=== PATIENT | female | born 1975 | race Caucasian/White ===

== ENCOUNTER → 2024-03-05 15:25 | Outpatient (BNVA) | payer OTHER, SELFPAY | PROVIDERS: Family Provider Nurse Practitioner Family; Visit Provider Obstetrics & Gynecology | DX: Z01.419 Encounter for gynecological examination (general) (routine) without abnormal findings (principal) | CPT/HCPCS: 80053; 84443; 85025; 87624 ==

== ENCOUNTER → 2024-03-26 08:29 | Outpatient (BNVA) | payer OTHER, SELFPAY | PROVIDERS: Family Provider Nurse Practitioner Family; Visit Provider Obstetrics & Gynecology | DX: N92.0 Excessive and frequent menstruation with regular cycle (principal); R93.89 Abnormal findings on diagnostic imaging of other specified body structures | CPT/HCPCS: 76830 ==

== ENCOUNTER 2024-03-29 08:55 | Day surgery (SDC) | payer OTHER, SELFPAY ==
[2024-03-29] VITALS (10 sets, daily range): BP systolic 109–138; BP diastolic 76–87; PULSE 53–83; RESP 11–18; TEMP 36.2–36.3; O2SAT 97–100
--- NOTE | 2024-03-29 02:15 | P.HP_ITS ---
Same Day Surgery H&P Indication for Procedure/HPI DATE OF PROCEDURE: March 29, 2024 CHIEF COMPLAINT/INDICATIONFOR SURGICAL PROCEDURE: abnormal uterine bleeding PREOP DIAGNOSIS: abnormal uterine bleeding PLANNED PROCEDURE: Operation Date: 03/29/24 10:45 Proposed Procedures p Hysteroscopy Hysteroscopy w/ Endometrial Sampling 76290, 43768, N93.9(Not Olegario licable) - Raul Fonseca MD s Poylpectomy(Not Applicable) - Raul Fonseca MD s Placement of Intrauterine Device(Not Applicable) - Raul Fonseca MD 48 y.o. with heavy, prolonged periods Medications/Allergies* Home Medications Medication Instructions Recorded Confirmed Type ferrous sulfate 325 mg (65 mg 325 mg PO DAILY 03/05/24 03/28/24 History iron) tablet Allergies/Adverse Reactions Allergy/AdvReac Type Severity Reaction Status Date / Time No Known Allergies Allergy Unverified 03/05/24 14:27 Pertinent History/Comorbid Conditions* Family History (Updated 03/05/24 @ 14:28 by Gertrudis Nazario LPN) Diabetes Grandmother Heart disease Mother Hypercholesteremia Mother Hypertension Mother Thyroid disease Mother Denies family history of Colon cancer Ovarian cancer Prostate cancer Breast cancer Uterine cancer Stroke Pertinent Exam Findings alert, oriented x 3, clear to auscultation bilaterally and regular rate & rhythm Recommendations Surgery/Procedure today Coding Level of Care Code Acute Code for Chg Fwd Time Spent (min) 30
[2024-03-29] MEDS: sodium chloride 0.9% 1,000 ML 30 ML IV (09:22)
--- NOTE | 2024-03-29 10:28 | W.PM.OPSUD ---
Surgery/Procedure H&P Update DATE OF PROCEDURE: March 29, 2024 DATE H&P PERFORMED: 03/29/24 H&P UPDATE INFORMATION: I have reviewed H&P completed within last 30 days, I have examined patient prior to procedure and No changes to prior documentation PREOP DIAGNOSIS: abnormal uterine bleeding PLANNED PROCEDURE: Operation Date: 03/29/24 10:45 Proposed Procedures p Hysteroscopy Hysteroscopy w/ Endometrial Sampling 11582, 40662, N93.9(Not Applicable) - Raul Fonseca MD s Poylpectomy(Not Applicable) - Raul Fonseca MD s Placement of Intrauterine Device(Not Applicable) - Raul Fonseca MD
--- NOTE | 2024-03-29 10:39 | ANES.PREANE2 ---
Pre-Anesthetic Assessment Height/Weight: Height 1.65 m Weight 76.204 kg Temp Pulse Resp BP Pulse Ox O2 Del Method 97.3 F L 53 L 18 131/85 100 Room Air 03/29/24 09:23 03/29/24 09:23 03/29/24 09:23 03/29/24 09:23 03/29/24 09:23 03/29/24 09:23 Preop Diagnosis: abnormal uterine bleeding Operation Date: 03/29/24 10:45 Proposed Procedures p Hysteroscopy Hysteroscopy w/ Endometrial Sampling 21839, 62167, N93.9(Not Applicable) - Raul Fonseca MD s Poylpectomy(Not Applicable) - Raul Fonseca MD s Placement of Intrauterine Device(Not Applicable) - Raul Fonseca MD Familial anesthetic complications: None Was Beta Magnolia taken within 24 hours: N/A Was Clonidine taken within 24 hours: N/A Last intake: Intake Last Liquid Date 03/28/24 Last Liquid Time 23:00 Last Solid Date 03/28/24 Last Solid Time 23:00 Social No alcohol and No tobacco Exam alert, oriented x 3, clear to auscultation bilaterally and regular rate & rhythm Airway Mallampati: Class I Dentition: full Anesthetic Plan ASA status: 1 Anesthesia: General Risk of > 500 ml blood loss (7ml/kg in children): No Medications/Allergies Home Medications Medication Instructions Recorded Confirmed Last Taken Type ferrous sulfate 325 mg (65 mg 325 mg PO DAILY 03/05/24 03/28/24 03/28/24 History iron) tablet Allergies Allergy/AdvReac Type Severity Reaction Status Date / Time No Known Allergies Allergy Unverified 03/05/24 14:27 Current Medications Generic Name Dose Route Start Last Admin Trade Name Freq PRN Reason Stop Dose Admin Sodium Chloride 1,000 mls @ 30 mls/hr 03/29/24 09:15 03/29/24 09:22 Sodium Chloride 0.9% IV 03/30/24 09:14 30 mls/hr .Q24H LEAH Administration PFSH Anesthesia Family History Mother Heart disease Hypertension Hypercholesteremia Thyroid disease Grandmother Diabetes Denies family history of Colon cancer Ovarian cancer Prostate cancer Breast cancer Uterine cancer Stroke Female Reproductive History Date of last menstrual period: 01/17/24 Data Anesthesia Cardiac Studies: No Data to Display
--- NOTE | 2024-03-29 11:56 | SUR.OPER ---
mirena iud placed by Dr. Fonseca. lot: [id number] exp: 06/01/26
--- NOTE | 2024-03-29 12:25 | PM.OP ---
Operative Report Date of procedure: March 29, 2024 Pre-op diagnosis: abnormal uterine bleeding Post-op diagnosis: same Post-op findings: Two endometrial polyps, benign-appearing + moderate amount of fluffy endometrial tissue Intact endometrial cavity following procedure Procedure done: hysteroscopy Endometrial sampling with Myosure Curettage of uterus Placement of mirena intrauterine device Implants: mirena intrauterine device Specimens removed/disposition: endometrial tissue Surgeon: Raul Fonseca MD Anesthesia: MAC Estimated blood loss (mL): 5 Complications: none Findings: Two endometrial polyps, benign-appearing + moderate amount of fluffy endometrial tissue Intact endometrial cavity following procedure Condition: stable Disposition: PACU Brief History: 48 y.o. very heavy periods x one year then worsened to daily heavy bleeding Procedure: Informed consent signed. Patient was taken to the operating room. Anesthesia was induced. Patient was placed in dorsolithotomy position, prepped and draped for hysteroscopy. A bivalve speculum was placed in the vagina. The anterior lip of the cervix was grasped with a sharp-toothed tenaculum. The uterus was sounded to 9 cm. The cervix was serially dilated with Hegar dilators. . A hysteroscope was placed into the endometrial cavity. There were two benign-appearing endometrial polyps. There was moderate amount of endometrial tissue. The Myosure device was used to remove the polyps and the endometrial tissue. The hysteroscope was then removed. Endometrial curettage was done with a sharp curette. Endometrial tissue was sent to pathology. The hysteroscope was re-introduced and the endometrial cavity was seen to be intact. The hysteroscope was removed. The mirena intrauterine device was then prepared, placed into the endometrial cavity and deployed. A 3-4 cm string was left at the cervical os. The sharp-toothed tenaculum was removed. There was no bleeding from the endometrial cavity or cervix. The patient was then placed supine and awakened and taken to the PACU. Postop condition: stable EBL: 5 cc Sponge and instruments counts were normal x 2 Complications: none
== END 2024-03-29 13:42 | disposition home or self-care (01) ==
PROVIDERS: Family Provider Nurse Practitioner Family; PCP Family Medicine; Visit Provider Obstetrics & Gynecology
PROC: 0UJD8ZZ Inspection of Uterus and Cervix, Via Natural or Artificial Opening Endoscopic (ICD-10-PCS; CPT 58555; principal; 2024-03-29 10:35)
PROC: (CPT 58300; 2024-03-29 10:35)
PROC: (CPT 58300; 2024-03-29 10:35)
DX: N93.9 Abnormal uterine and vaginal bleeding, unspecified (principal); N84.0 Polyp of corpus uteri
CPT/HCPCS: 58300; 58558; 88305; J1100; J1885; J2250; J2405; J2704; J3010; J7030

== ENCOUNTER 2024-05-09 14:37 | Outpatient (CLI) | payer OTHER, SELFPAY ==
--- NOTE | 2024-05-09 14:40 | MM_ITS ---
WS: [id number] BILATERAL 3D TOMOSYNTHESIS DIGITAL SCREENING MAMMOGRAPHY WITH CAD CLINICAL INFORMATION: Z12.39 - Encounter for other screening for malignant neop... HISTORY: Screening mammogram. No current complaints. COMPARISON: 2019 TECHNIQUE: Bilateral CC and MLO views. FINDINGS: Scattered fibroglandular densities bilaterally. No suspicious focal mass, asymmetry, calcifications, or architectural distortion. No evidence of malignancy. A few punctate calcifications RIGHT breast. I ncreased nodularity and punctate calcifications subareolar RIGHT breast in the area of prior cyst asp iration. Recommend RIGHT breast diagnostic mammography and ultrasound subareolar RIGHT breast. Unremarkable LEFT breast. MM/[place] [id number] IMPRESSION: BI-RADS: 0-Incomplete: Need additional imaging evaluation FOLLOW UP: Need Additional Imaging Recommend RIGHT breast diagnostic mammography and subareolar RIGHT breast ultra sound
== END 2024-05-09 14:38 | disposition home or self-care (01) ==
LOC: MOBLMAM 14:42
PROVIDERS: Family Provider Nurse Practitioner Family; PCP Obstetrics & Gynecology; Visit Provider Obstetrics & Gynecology
DX: Z12.39 Encounter for other screening for malignant neoplasm of breast (principal); R92.323 Mammographic fibroglandular density, bilateral breasts; R92.1 Mammographic calcification found on diagnostic imaging of breast
CPT/HCPCS: 77063; 77067

== ENCOUNTER 2024-06-14 12:49 | Outpatient (CLI) | payer OTHER, SELFPAY ==
--- NOTE | 2024-06-14 13:00 | MM_ITS ---
WS: [id number] RIGHT 3D TOMOSYNTHESIS DIGITAL MAMMOGRAPHY WITH CAD CLINICAL INFORMATION: R92.8 - Other abnormal and inconclusive findings on diagn... HISTORY: Additional views COMPARISON: 2019 TECHNIQUE: 3 views of the right breast were obtained. FINDINGS: Scattered fibroglandular densities of the right breast. Previously described increased nodularity sub areolar RIGHT breast in the area of prior cyst aspiration is persistent. Ultrasound is pending. ULTRASOUND BREAST RIGHT TECHNIQUE: Ultrasound right breast focused area of concern. CLINICAL INFORMATION: R92.8 - Other abnormal and inconclusive findings on diagn... FINDINGS: Ultrasound subareolar RIGHT breast. Dilated ducts with intraductal debris deep to the areola. Small c omplex cyst measuring 4 x 4 x 4 mm with through transmission. No other abnormalities. MM/[place] [id number] IMPRESSION: DENSITY: There are scattered areas of fibroglandular density. BI-RADS: 2 - Benign. FOLLOW UP: 1 Year Follow-up Recommend return to annual screening mammography..
--- NOTE | 2024-06-14 13:30 | US_ITS ---
WS: [id number] RIGHT 3D TOMOSYNTHESIS DIGITAL MAMMOGRAPHY WITH CAD CLINICAL INFORMATION: R92.8 - Other abnormal and inconclusive findings on diagn... HISTORY: Additional views COMPARISON: 2019 TECHNIQUE: 3 views of the right breast were obtained. FINDINGS: Scattered fibroglandular densities of the right breast. Previously described increased nodularity sub areolar RIGHT breast in the area of prior cyst aspiration is persistent. Ultrasound is pending. ULTRASOUND BREAST RIGHT TECHNIQUE: Ultrasound right breast focused area of concern. CLINICAL INFORMATION: R92.8 - Other abnormal and inconclusive findings on diagn... FINDINGS: Ultrasound subareolar RIGHT breast. Dilated ducts with intraductal debris deep to the areola. Small c omplex cyst measuring 4 x 4 x 4 mm with through transmission. No other abnormalities. US/[place] [id number] IMPRESSION: DENSITY: There are scattered areas of fibroglandular density. BI-RADS: 2 - Benign. FOLLOW UP: 1 Year Follow-up Recommend return to annual screening mammography..
== END 2024-06-14 12:50 | disposition home or self-care (01) ==
PROVIDERS: Family Provider Nurse Practitioner Family; PCP Obstetrics & Gynecology; Visit Provider Obstetrics & Gynecology
DX: R92.8 Other abnormal and inconclusive findings on diagnostic imaging of breast (principal); N60.01 Solitary cyst of right breast
CPT/HCPCS: 76641; 77061; G0279

== ENCOUNTER → 2024-07-24 16:18 | Outpatient (BNVA) | payer OTHER, SELFPAY | PROVIDERS: Family Provider Nurse Practitioner Family; PCP Obstetrics & Gynecology; Visit Provider Obstetrics & Gynecology | DX: N93.9 Abnormal uterine and vaginal bleeding, unspecified (principal) | CPT/HCPCS: 82306; 85025 ==

== ENCOUNTER 2025-07-22 09:10 | Outpatient (CLI) | payer OTHER, SELFPAY ==
--- NOTE | 2025-07-22 09:10 | MM_ITS ---
WS: [id number] BILATERAL SCREENING DIGITAL TOMOSYNTHESIS MAMMOGRAM WITH CAD HISTORY: SCREENING COMPARISON: 06/14/2024, 05/09/2024, 05/22/2019 Bilateral CC and MLO views with tomosynthesis and synthetic mammography submitted. Computer aided detection analyzed. Breast composition: There are scattered areas of fibroglandular density. No suspicious masses, microcalcifications or architectural distortion. MM/MM scr BI tomosynthesis [id number] IMPRESSION: BI-RADS: 1 - Negative. FOLLOW UP: 1 Year Follow-up
== END 2025-07-22 09:11 | disposition home or self-care (01) ==
PROVIDERS: Family Provider Nurse Practitioner Family; PCP Obstetrics & Gynecology; Visit Provider Obstetrics & Gynecology
DX: Z12.31 Encounter for screening mammogram for malignant neoplasm of breast (principal); R92.323 Mammographic fibroglandular density, bilateral breasts
CPT/HCPCS: 77063; 77067